=== PATIENT | male | born 1985 ===

== ENCOUNTER 2023-02-26 15:30 | Observation (INO) ==
[2023-02-26 17:25] LABS: Hemoglobin 16.1 g/dL (13.2-16.3); Mean Corpuscular Hemoglobin 32.9 pg (27-33); Mean Platelet Volume 9.8 fL (7.5-11.2); Platelet Count 204 10^3/uL (150-450); Red Blood Count 4.89 10^6/uL (4.06-5.63); Red Cell Distribution Width 13.6 % (12-17); White Blood Count 11.2 10^3/uL (3.6-10.2)
[2023-02-26 17:28] LABS: Urine Appearance Cloudy; Urine Bilirubin Negative (Negative); Urine Blood Negative (Negative); Urine Color Amber; Urine Glucose Negative (Negative); Urine Ketones Negative (Negative); Urine Nitrite Negative (Negative); Urine Protein Negative (Negative); Urine Specific Gravity 1.003 (1.002-1.030); Urine Urobilinogen Negative (Negative)
[2023-02-26 17:52] LABS: Albumin 4.1 g/dL (3.2-5.2); Albumin/Globulin Ratio 1.1 (1-3); Alkaline Phosphatase 127 U/L (35-149); C Reactive Protein 16.71 mg/L (<8.01); CO2 Carbon Dioxide 28 mmol/L (22-32); Calcium 9.2 mg/dL (8.6-10.3); Chloride 81 mmol/L (101-111); Creatinine, Serum 1.46 mg/dL (0.67-1.17); Globulin 3.7 g/dL (2-4); Glucose 93 mg/dL (70-100); Lipase 186 U/L (11.0-82.0); Total Bilirubin 5.3 mg/dL (0.2-1.0); Total Protein 7.8 g/dL (6.4-8.9); eGFR CKD-EPI 63.9 (>60)
[2023-02-26 17:55] LABS: Anion Gap 8 mmol/L (2-16); Sodium 117 mmol/L (135-145)
[2023-02-26 17:57] LABS: ABS Basophils 0.1 10^3/uL (0.0-0.1); ABS Lymphocytes 1.9 10^3/uL (1.0-4.8); ABS Monocytes 0.6 10^3/uL (0.0-1.1); ABS Neutrophils 8.6 10^3/uL (1.5-7.6); ABS Nucleated RBC 0.04 10^3/ul; Eosinophil % 0.4 %; Nucleated Red Blood Cells % 0.4 %/100WBC (0.0-0.8)
[2023-02-26] MEDS ORDERED: Iohexol 350 (CONTRAST) 500 ML MDV IV ONE (18:22)
[2023-02-26 18:23] LABS: ALT 154 U/L (7-52); Blood Urea Nitrogen 7 mg/dL (6-24)
[2023-02-26 18:48] LABS: INR 0.92 (0.83-1.13)
[2023-02-26 18:57] LABS: Potassium Redraw 4.4 mmol/L (3.5-5.0)
[2023-02-26 19:19] LABS: Direct Bilirubin 2.1 mg/dL (0.03-0.18)
[2023-02-26] MEDS ORDERED: NS 0.9% 1000 ml BAG 1,000 ML IV SCH (21:45)
[2023-02-26 21:46] LABS: Alcohol, S < 13 mg/dL (<13)
[2023-02-26] MEDS: Enoxaparin 40 MG/0.4 ML SYR SUBCUT SCH (21:55)
[2023-02-26 21:56] LABS: Urine Benzodiazepine Screen None Detected (None Detect); Urine Cannabinoids Screen None Detected (None Detect); Urine Opiates Screen None Detected (None Detect)
[2023-02-26 22:11] LABS: INR 0.96 (0.83-1.13)
[2023-02-26 22:19] LABS: Osmolality Serum 283 mOsm/kg (275-295)
[2023-02-26 22:29] LABS: Hepatitis B Surface Antigen Nonreactive (Nonreactive)
[2023-02-26 22:34] LABS: Hepatitis A Ab IgM Negative (Negative)
[2023-02-26 22:35] LABS: Hepatitis B Core IgM Nonreactive (Nonreactive)
[2023-02-26 22:47] LABS: Hepatitis C Antibody Negative (Negative)
[2023-02-26 22:49] LABS: TSH Ultra Thyroid Stim Horm 0.81 mcIU/mL (0.34-5.60)
[2023-02-26 22:56] LABS: ALT 129 U/L (7-52); Albumin 3.5 g/dL (3.2-5.2); Alkaline Phosphatase 133 U/L (35-149); Anion Gap 11 mmol/L (2-16); Blood Urea Nitrogen 7 mg/dL (6-24); CO2 Carbon Dioxide 26 mmol/L (22-32); Calcium 8.7 mg/dL (8.6-10.3); Chloride 89 mmol/L (101-111); Cholesterol 567 mg/dL; Creatinine, Serum 1.25 mg/dL (0.67-1.17); Globulin 3.4 g/dL (2-4); Glucose 94 mg/dL (70-100); HDL Cholesterol 13.1 mg/dL; Sodium 126 mmol/L (135-145); Total Bilirubin 6.1 mg/dL (0.2-1.0); Total Protein 6.9 g/dL (6.4-8.9); Triglycerides 1706 mg/dL
[2023-02-26 23:12] LABS: LDL Cholesterol Direct 157 mg/dL
[2023-02-26] MEDS: NS 0.9% 1000 ml BAG 1,000 ML IV SCH (23:24)
[2023-02-27 05:58] LABS: ABS Basophils 0.1 10^3/uL (0.0-0.1); ABS Lymphocytes 2.6 10^3/uL (1.0-4.8); ABS Monocytes 0.5 10^3/uL (0.0-1.1); ABS Nucleated RBC 0.03 10^3/ul; Eosinophil % 0.3 %; Hematocrit 43.1 % (38-53); Hemoglobin 14.9 g/dL (13.2-16.3); Lymphocyte % 28.2 %; Mean Corpuscular Hemoglobin 32.5 pg (27-33); Mean Corpuscular Hgb Conc 34.4 g/dL (31-36); Mean Corpuscular Volume 94.4 fL (80-97); Mean Platelet Volume 9.6 fL (7.5-11.2); Nucleated Red Blood Cells % 0.3 %/100WBC (0.0-0.8); Platelet Count 181 10^3/uL (150-450); Red Blood Count 4.57 10^6/uL (4.06-5.63); Red Cell Distribution Width 14.1 % (12-17); White Blood Count 9.2 10^3/uL (3.6-10.2)
[2023-02-27 06:17] LABS: Magnesium 2.3 mg/dL (1.9-2.7)
[2023-02-27 07:32] LABS: ALT 121 U/L (7-52); Albumin 3.5 g/dL (3.2-5.2); Alkaline Phosphatase 132 U/L (35-149); Anion Gap 11 mmol/L (2-16); Blood Urea Nitrogen 8 mg/dL (6-24); CO2 Carbon Dioxide 27 mmol/L (22-32); Calcium 8.4 mg/dL (8.6-10.3); Chloride 91 mmol/L (101-111); Creatinine, Serum 1.32 mg/dL (0.67-1.17); Globulin 3.5 g/dL (2-4); Glucose 94 mg/dL (70-100); Sodium 129 mmol/L (135-145); Total Bilirubin 5.9 mg/dL (0.2-1.0); eGFR CKD-EPI 72.1 (>60)
[2023-02-27] MEDS: Multivitamins/Minerals TAB PO SCH (10:21)
[2023-02-27] MEDS ORDERED: Lactated Ringers 1000 ml BAG 1,000 ML IV ONE (11:38)
[2023-02-27] MEDS: NS 0.9% 1000 ml BAG 1,000 ML IV SCH (13:48)
[2023-02-27] MEDS: Lactated Ringers 1000 ml BAG 1,000 ML IV SCH (20:17)
[2023-02-27] MEDS: Enoxaparin 40 MG/0.4 ML SYR SUBCUT SCH (20:23)
[2023-02-28] MEDS: Lactated Ringers 1000 ml BAG 1,000 ML IV SCH (03:52)
[2023-02-28 06:57] LABS: ABS Eosinophils 0.1 10^3/uL (0.0-0.5); ABS Lymphocytes 2.5 10^3/uL (1.0-4.8); ABS Monocytes 0.3 10^3/uL (0.0-1.1); ABS Neutrophils 3.6 10^3/uL (1.5-7.6); ABS Nucleated RBC 0.01 10^3/ul; Eosinophil % 1.2 %; Hemoglobin 12.5 g/dL (13.2-16.3); Lymphocyte % 38.6 %; Mean Corpuscular Hemoglobin 32.2 pg (27-33); Mean Corpuscular Hgb Conc 33.7 g/dL (31-36); Mean Corpuscular Volume 95.5 fL (80-97); Mean Platelet Volume 9.4 fL (7.5-11.2); Nucleated Red Blood Cells % 0.1 %/100WBC (0.0-0.8); Platelet Count 155 10^3/uL (150-450); Red Blood Count 3.87 10^6/uL (4.06-5.63); Red Cell Distribution Width 13.8 % (12-17); White Blood Count 6.4 10^3/uL (3.6-10.2)
[2023-02-28 07:16] LABS: Albumin 3.1 g/dL (3.2-5.2); Calcium 8.4 mg/dL (8.6-10.3); Creatinine, Serum 1.06 mg/dL (0.67-1.17); Magnesium 2.4 mg/dL (1.9-2.7); Phosphorus 3.1 mg/dL (2.5-5.0); Total Bilirubin 4.3 mg/dL (0.2-1.0); Total Protein 6.1 g/dL (6.4-8.9); eGFR CKD-EPI 93.9 (>60)
[2023-02-28 07:42] LABS: HDL Cholesterol 14.4 mg/dL
[2023-02-28] MEDS: Multivitamins/Minerals TAB PO SCH (09:09)
[2023-02-28 12:21] VITALS: BP 147/91
[2023-02-28 13:22] LABS: Alpha 1 Antitrypsin A1A 365 mg/dL (100 - 190)
[2023-02-28 15:36] LABS: Ceruloplasmin >100.0 mg/dL
== END 2023-02-28 13:40 | disposition home or self-care (01) ==
LOC: ED 15:30 → EDHOLD 15:30 → SUATTDRO 21:32 → MED 02-27 00:07
PROVIDERS: ADMIT Internal Medicine; ATTEND Student in an Organized Health Care Education/Training Program